=== PATIENT | female | born 1985 | race African-American/Black ===

== ENCOUNTER 2025-04-08 13:25 | Outpatient (CLI) | payer BC | END 2025-04-08 13:26 | disposition home or self-care (01) | LOC: CSHMAMMO 13:25 | PROVIDERS: ATTEND Student in an Organized Health Care Education/Training Program | DX: Z08 Encounter for follow-up examination after completed treatment for malignant neoplasm (principal); Z85.3 Personal history of malignant neoplasm of breast | CPT/HCPCS: 77066; G0279 ==